=== PATIENT | female | born 1990 | race Caucasian/White ===

== ENCOUNTER 2017-04-30 16:05 | Emergency (ER) | payer OTHER, SELFPAY ==
[2017-04-30 17:45] VITALS: BP 132/90; PULSE 119; RESP 20; TEMP 36.9; O2SAT 92; BMI 40.7
[2017-04-30 17:58] LABS: UTC Influenza A Antigen Negative (Negative); UTC Influenza B Antigen Negative (Negative)
--- NOTE | 2017-04-30 17:58 | HMH.EDUTC ---
[facility] [place] Disposition Clinical Impression: Viral upper respiratory tract infection Disposition: Home, Self-Care Condition on Discharge: Good Instructions: DI for Viral Upper Respiratory Infection -- Adult Additional Instructions: * Monitor Temp. Tylenol and/or Ibuprofen as needed. ER if fever is no less than 101 despite alternating Tylenol and Ibuprofen * Encourage fluids, water, Gatorade, powerade, pedialyte if infant/toddler/or child * Warm salt water gargles for throat irritation *Warm fluids *Sore throat lozenges *Sleep elevated *humidifier or vaporizer Lots of rest Increase fluids, water, Gatorade, powerade *Bromfed may cause drowsiness. Know how it effect you or your child. Before driving, caring for small children or sending your child to school *Your throat swab was sent to lab for culture. Those results area typically sent to your primary care physician. Be sure to follow up in 2-3 days if no improvement so they can review those results and treat if necessary If you dont have primary care I recommend you get one, but in the mean time you will have to return to a walk in clinic Follow up IMMEDIATELY for new or worsening of symptoms OR no noticeable improvement over the next 48-72 hours. 911 immediately for any life threatening symptoms such as chest pain or difficulty breathing Prescriptions: Brompheniramine/Pseudoephed/Dm [Bromfed DM Cough Syrup 5mL] 10 ml PO Q4H PRN #200 syrup PRN Reason: Cough Referrals: Emmanuel Reagan MD [Primary Care Provider] - Forms: Work/School Release Time of Disposition: 18:02 Medical Decision Making Vital Signs: 04/30/17 17:45 Temperature 98.4 F Temperature Source Temporal Artery Scan Pulse Rate [Right Brachial] 119 H Respiratory Rate 20 Blood Pressure [Right Arm] 132/90 Blood Pressure Mean [Right Arm] 104 Blood Pressure Position [Right Arm] Sitting 02 Sat by Pulse Oximetry 92 L Oxygen Delivery Method Room Air - Chuy Inquiry Pt receiving controlled substance: No Chuy was queried for this patient: No [facility] [place] HPI - General Stated complaint: POSSIBLE FLU Mode of Arrival: Family Vehicle Source of Information: Patient Limitations: No Limitations Description of Symptoms (Recalled from Triage Doc. by RN): FLU LIKE SYMPTOMS HEENT Symptoms (Recalled from RN notes): Yes (FLU LIKE) Resp Symptoms (Recalled from RN notes): Yes (FLU LIKE) Skin Symptoms (Recalled from RN notes): No MS Symptoms (Recalled from RN notes): No Functional Status (Recalled from RN notes): NA - History of Present Illness Provider Complaint: Patient state that her nephew has the flu and she began to run a fever last night and not feeling well States that she is having body aches, chills and sore throat State that she wanted to come in and get checked for flu - Related Data Previous Rx's Medication Instructions Recorded Brompheniramine/Pseudoephed/Dm 10 ml PO Q4H PRN #200 syrup 04/30/17 [Bromfed DM Cough Syrup 5mL] Allergies Allergy/AdvReac Type Severity Reaction Status Date / Time No Known Allergies Allergy Unverified 04/03/17 14:53 - Worker's Comp Is this a Worker's Comp case?: No [facility] History I have reviewed the patient's past medical history: Yes Laterality Cases: Bilateral: Tonsillectomy - *Social History Smoking Status: Current every day smoker Tobacco Type: cigarettes Alcohol Intake: never - Psychiatric History Expresses thoughts of harming self/others: None Suicide Plan Description: No Plan ROS Obtained: Yes All systems reviewed & no additional complaints - Constitutional Constitutional: Reports chills, Reports fever(s) - ENT Ears, Nose, Mouth, and Throat: Reports sore throat Physical Exam - General General appearance: alert, in no apparent distress - ENT ENT exam: Present: normal exam, normal oropharynx, mucous membranes moist, TM's normal bilaterally, normal external ear exam - Respiratory Respiratory exam: Present: normal lung sounds bilateral
--- NOTE | 2017-04-30 18:01 | ED_ITS ---
[facility] [place] Clinical Impression: Viral upper respiratory tract infection Disposition: Home, Self-Care Condition on Discharge: Good Instructions: DI for Viral Upper Respiratory Infection -- Adult Additional Instructions: * Monitor Temp. Tylenol and/or Ibuprofen as needed. ER if fever is no less than 101 despite alternating Tylenol and Ibuprofen * Encourage fluids, water, Gatorade, powerade, pedialyte if infant/toddler/or child * Warm salt water gargles for throat irritation *Warm fluids *Sore throat lozenges *Sleep elevated *humidifier or vaporizer Lots of rest Increase fluids, water, Gatorade, powerade *Bromfed may cause drowsiness. Know how it effect you or your child. Before driving, caring for small children or sending your child to school *Your throat swab was sent to lab for culture. Those results area typically sent to your primary care physician. Be sure to follow up in 2-3 days if no improvement so they can review those results and treat if necessary If you don? t have primary care I recommend you get one, but in the mean time you will have to return to a walk in clinic Follow up IMMEDIATELY for new or worsening of symptoms OR no noticeable improvement over the next 48-72 hours. 911 immediately for any life threatening symptoms such as chest pain or difficulty breathing Prescriptions: Brompheniramine/Pseudoephed/Dm [Bromfed DM Cough Syrup 5mL] 10 ml PO Q4H PRN # 200 syrup PRN Reason: Cough Referrals: Emmanuel Reagan MD [Primary Care Provider] - Forms: Work/School Release Time of Disposition: 18:02 Medical Decision Making Vital Signs: 04/30/17 17:45 Temperature 98.4 F Temperature Source Temporal Artery Scan Pulse Rate [Right Brachial] 119 H Respiratory Rate 20 Blood Pressure [Right Arm] 132/90 Blood Pressure Mean [Right Arm] 104 Blood Pressure Position [Right Arm] Sitting 02 Sat by Pulse Oximetry 92 L Oxygen Delivery Method Room Air - Chuy Inquiry Pt receiving controlled substance: No Chuy was queried for this patient: No [facility] [place] - General Stated complaint: POSSIBLE FLU Mode of Arrival: Family Vehicle Source of Information: Patient Limitations: No Limitations Description of Symptoms (Recalled from Triage Doc. by RN): FLU LIKE SYMPTOMS HEENT Symptoms (Recalled from RN notes): Yes (FLU LIKE) Resp Symptoms (Recalled from RN notes): Yes (FLU LIKE) Skin Symptoms (Recalled from RN notes): No MS Symptoms (Recalled from RN notes): No Functional Status (Recalled from RN notes): NA - History of Present Illness Provider Complaint: Patient state that her nephew has the flu and she began to run a fever last night and not feeling well States that she is having body aches , chills and sore throat State that she wanted to come in and get checked for flu - Related Data Previous Rx's Medication Instructions Recorded Brompheniramine/Pseudoephed/Dm 10 ml PO Q4H PRN #200 syrup 04/30/17 [Bromfed DM Cough Syrup 5mL] Allergies Allergy/AdvReac Type Severity Reaction Status Date / Time No Known Allergies Allergy Unverified 04/03/17 14:53 - Worker's Comp Is this a Worker's Comp case?: No [facility] History I have reviewed the patient's past medical history: Yes Laterality Cases: Bilateral: Tonsillectomy - *Social History Smoking Status: Current every day smoker Tobacco Type: cigarettes Alcohol Intake: never - Psychi
== END 2017-04-30 18:07 | disposition home or self-care (01) ==
PROVIDERS: Emergency Provider Nurse Practitioner; Family Provider Nurse Practitioner Family; PCP Emergency Medicine
DX: J06.9 Acute upper respiratory infection, unspecified (principal); F17.210 Nicotine dependence, cigarettes, uncomplicated
CPT/HCPCS: 87804; 99201

== ENCOUNTER → 2018-01-25 15:07 | Outpatient (CLI) | payer OTHER, SELFPAY ==
--- NOTE | 2018-01-25 15:10 | US_ITS ---
US breast LT complete INDICATION: Left breast lump ORDERING PHYSICIAN: Caitlyn Brownlee PATIENT AGE: 27 years COMPARISON: None TECHNIQUE: Standard FINDINGS: 7 mm hypoechoic nodule at 8:00 with some internal septations. Mild ductal ectasia in the retroareolar region. 9 mm hypoechoic nodule at 12:00 outer with internal septations and a 5 mm hypoechoic nodule at 12:00 outer with internal septations IMPRESSION: Multiple hypoechoic nodules present suggesting complex cysts. No suspicious nodules apparent BI-RADS Category: 3 Probably Benign Finding Short Term Follow-up RECOMMENDED FOLLOW-UP: 6M - 6 MONTH FOLLOW-UP (A letter has been sent to the patient regarding results of the study.)
== END ==
PROVIDERS: Family Provider Nurse Practitioner Family; PCP Internal Medicine Adolescent Medicine; Visit Provider Nurse Practitioner Family
DX: N60.02 Solitary cyst of left breast (principal)
CPT/HCPCS: 76641

== ENCOUNTER → 2018-07-18 09:30 | Outpatient (CLI) | payer OTHER, SELFPAY ==
--- NOTE | 2018-07-18 09:38 | US_ITS ---
US breast LT complete Ordering Physician: Rosa Loja [facility] Patient Age: 27 years: Female HISTORY: ITS.REASON: lt breast cyst TECHNIQUE: Ultrasound survey entire left breast along with axillary survey COMPARISON :01/25/2018 ultrasound left breast FINDINGS No significant new findings 2:00. There is a 1.1 cm x 0.65 cm small cluster of cysts compatible with apocrine cysts This was seen before but is slightly more evident is slightly larger but it has benign appearance and can be followed. Good through transmission. 6:00. Tiny 6.5 mm area of similar character. Likely tiny clusterapocrine cystS No suspicious solid nodules or masses. No architectural distortion appreciable. Axillary survey unremarkable. IMPRESSION: No new areas of concern. There is a benign appearing cluster apocrine cysts at 2 o'clock position right breast which is slightly larger but has benign appearance. Mildly complex cyst. A tiny similar cluster cysts at 6:00.. These appear to be benign features and can be followed.. BI-RADS 2 benign appearing features RECOMMENDATION follow-up in one year Routine follow-up for age I believe these are benign features but ultrasound follow-up in one year suggested
== END ==
PROVIDERS: Visit Provider Nurse Practitioner Obstetrics & Gynecology
DX: N60.09 Solitary cyst of unspecified breast (principal); N63.20 Unspecified lump in the left breast, unspecified quadrant; N64.4 Mastodynia
CPT/HCPCS: 76641

== ENCOUNTER → 2018-10-04 08:00 | Outpatient (CLI) | payer OTHER, SELFPAY ==
--- NOTE | 2018-10-04 08:02 | US_ITS ---
US soft tissue head and neck Ordering Physician: Sony Cho MD Patient Age: 28 years: Female HISTORY: ITS.REASON: cyst of left neck behind ear TECHNIQUE: Ultrasound neck- attention palpable mass left posterior neck COMPARISON :None FINDINGS There is a 10 mm transverse x 9 mm AP round semisolid well marginated nodular density. Most likely debris-filled cyst.-. As It demonstrates through transmission back wall enhancement supporting the debris-filled cyst character. It encountered just beneath the skin surface and extends through the skin layer and extends down into the underlying SQ subcutaneous tissue. There are a few specular echoes within it. Most likely of dermal origin ... & Appearance most compatible with a sebaceous cyst.-with this location and its overall appearance . . This area could be easily aspirated clinically or by ultrasound guidance if desire further definitive confirmation and diagnosis.... Or this area shows progressive enlargement clinically. IMPRESSION: . 1. Well marginated debris-filled cyst just beginning just beneath the skin surface and extending deep to this.... Most likely of dermal origin. . most likely a Sebaceous Cyst or similar entity. Note comments in body of report
== END ==
PROVIDERS: Visit Provider Surgery
DX: L72.9 Follicular cyst of the skin and subcutaneous tissue, unspecified (principal)
CPT/HCPCS: 76536

== ENCOUNTER 2019-08-24 13:43 | Emergency (ER) | payer OTHER, SELFPAY ==
[2019-08-24 13:53] VITALS: BP 128/73; PULSE 94; RESP 19; TEMP 36.8; O2SAT 99; BMI 34.7
--- NOTE | 2019-08-24 14:04 | HMH.EDUTC ---
[facility] [place] Disposition Clinical Impression: Chest wall abscess Disposition: Home, Self-Care Condition on Discharge: Good Instructions: Boil Additional Instructions: Keep the affected area clean and dry. Follow up with the surgeon that I put in a referral to (Dr. Cho). Take the antibiotics as directed and apply the topical antibiotics as directed. Apply warm wet compresses to the affected area three or four times per day. GO TO THE ER FOR ANY WORSENING SYMPTOMS Prescriptions: Sulfamethoxazole/Trimethoprim [Bactrim DS tablet] 1 each PO BID 10 Days #20 tab Transmission Status: Received by [facility] # Mupirocin [Bactroban 2% Ointment 22gm tube] 1 applicatio TP TID 7 Days #1 tube Transmission Status: Received by [facility] # cephALEXin [Keflex 500mg Cap] 500 mg PO Q6H 10 Days #40 cap Transmission Status: Received by [facility] # Referrals: Provider,MD Christelle [Primary Care Provider] - Sony Cho MD [Staff Physician] - Time of Disposition: 14:10 Medical Decision Making - Medical Records Medical records reviewed: No: I reviewed the patient's medical records. - Chuy Inquiry Pt receiving controlled substance: No Vital Signs: 08/24/19 13:53 08/24/19 14:17 Temperature 98.3 F 98.3 F Temperature Source Oral Pulse Rate 94 H Pulse Rate [Left Brachial] 94 H Respiratory Rate 19 19 Blood Pressure 128/73 Blood Pressure [Left Arm] 128/73 Blood Pressure Mean [Left Arm] 91 Blood Pressure Source [Left Arm] Automatic Cuff Blood Pressure Position [Left Arm] Sitting 02 Sat by Pulse Oximetry 99 Oxygen Delivery Method Room Air Medical Decision Narrative: this cyst does not appear to be associated with her breast, but i referred to general surgery for further evaluation to be safe. [facility] [place] HPI - General Stated complaint: boil under L breast Time Seen by Provider: 08/24/19 14:04 Mode of Arrival: Ambulatory Source of Information: Patient Limitations: No Limitations Description of Symptoms (Recalled from Triage Doc. by RN): PATIENT C/O BOIL UNDER LEFT BREAST ON AND OFF FOR THE PAST 2 YEARS. SHE SAID IT HAS BECOME PAINFUL AND IS IRRITATED BY HER BRA. DENIES FEVER AND ANY OTHER SYMPTOMS HEENT Symptoms (Recalled from RN notes): No Resp Symptoms (Recalled from RN notes): No Skin Symptoms (Recalled from RN notes): Yes MS Symptoms (Recalled from RN notes): No Functional Status (Recalled from RN notes): WNL - History of Present Illness Provider Complaint: She states that she has a recurrent cyst below her left breast on her chest. Over the past 2 years it has periodically got painful and swollen until it busts. Then is will almost go away until it gets inflamed again. She states that over the past 3 days the site has been draining a little clear drainage and has redness around it. - Related Data Previous Rx's Medication Instructions Recorded Mupirocin [Bactroban 2% Ointment 1 applicatio TP TID 7 Days #1 tube 08/24/19 22gm tube] Sulfamethoxazole/Trimethoprim 1 each PO BID 10 Days #20 tab 08/24/19 [Bactrim DS tablet] cephALEXin [Keflex 500mg Cap] 500 mg PO Q6H 10 Days #40 cap 08/24/19 Allergies Allergy/AdvReac Type Severity Reaction Status Date / Time No Known Allergies Allergy Verified 06/12/19 16:59 - Worker's Comp Is this a Worker's Comp case?: No [facility] History - Hepatitis A Screen Drug use history?: No High risk sexual behaviors?: No History of sexually transmitted infection?: No Currently employed?: No Childcare worker?: No Do you have indoor plumbing?: Yes Do you have electricity?: Yes Attestation statement:: This patient has been screened for Hepatitis A risk factors. I have reviewed the patient's past medical history: Yes Medical History: Reports:: MRSA Denies:: Cancer, Diabetes Mellitus Type 1, Diabetes Mellitus Type 2, Seizures Other Medical History: Denies: Blood Transfusion Reaction Lateralit
[2019-08-24 14:17] VITALS: BP 128/73; PULSE 94; RESP 19; TEMP 36.8; O2SAT 99
== END 2019-08-24 14:18 | disposition home or self-care (01) ==
LOC: ER 13:46 → UTC 13:47
PROVIDERS: Emergency Provider Nurse Practitioner Family
DX: L02.213 Cutaneous abscess of chest wall (principal); F17.210 Nicotine dependence, cigarettes, uncomplicated; Z90.09 Acquired absence of other part of head and neck
CPT/HCPCS: 99201

== ENCOUNTER → 2019-09-23 08:05 | Outpatient (CLI) | payer OTHER, SELFPAY ==
[2019-09-23 08:30] LABS: Urine Pregnancy, HCG Qual. Negative (Negative)
[2019-09-23 10:13] LABS: Coronavirus 19 IgG Antibody Negative (Negative); Coronavirus 19 IgM Antibody Negative (Negative)
== END ==
PROVIDERS: Visit Provider Surgery
DX: Z32.02 Encounter for pregnancy test, result negative (principal); Z01.84 Encounter for antibody response examination; L02.213 Cutaneous abscess of chest wall
CPT/HCPCS: 36415; 81025; 86328

== ENCOUNTER 2019-09-24 06:23 | Day surgery (SDC) | payer OTHER, SELFPAY ==
[2019-09-23 11:36] VITALS: BMI 34.9
[2019-09-24 06:33] VITALS: BP 126/71; PULSE 83; RESP 18; TEMP 36.7; O2SAT 98
--- NOTE | 2019-09-24 07:03 | HMH.ANESCL ---
[facility] Anesthesia Checklist - Patient Identification Patient Identification: Arm Band, Verbal (Name & ) - Structural Data Admitted From: Home Planned Operative Procedure/s: exc. chest lesion Consent for Planned Operative Procedure(s) Verified: Yes Verified Documents: History and Physical - NPO Status Verified Time NPO: 00:00 - Chart Verification Results Verified: CBC, BMP - Additional verifications Patient : No Anesthesia Reactions: No Hx Blood Transfusions: No Blood Transfusion Reaction: No Cephalosporin Allergy: No Previous Colonoscopy: No - Cardiovascular Assessment Heart Sounds: S1 & S2 Pulse Strength: Baseline Pulse Rhythm: Regular Peripheral Edema: No - Airway Assessment C-Spine Mobility Assessed: Yes TMJ Mobility Assessed: Yes Dentition: Good Dentition - Neurological Assessment Level of Consciousness: Awake, Alert, Appropriate Hx Seizures: No Numbness or tingling in extremities: No - Anesthesia Plan Anesthesia Risk discussed: Yes Anesthesia Plan: Verified ASA Class: II Anesthesia Type: General [facility] History I have reviewed the patient's past medical history: Yes Medical History: Denies:: Cancer, Diabetes Mellitus Type 1, Diabetes Mellitus Type 2, Internal Pacemaker, MRSA, Seizures *Have you ever received a pneumonia vaccine?: No *Have you received a flu vaccine this season?: No Other Medical History: Denies: Blood Transfusion Reaction Anesthesia experience/problems:: none Laterality Cases: Bilateral: Tonsillectomy Other Surgeries: Yes: No Previous Surgery, Colonoscopy. No: Pacemaker Amputation: No Fractures: No - *Social History Educational Level: Completed College Smoking Status: Current every day smoker Tobacco Type: cigarettes # Packs/Day (cigarettes): 1 Alcohol Intake: never Substance Use Type: marijuana *Occupational Status:: employed Housing: house Household Members: significant other, children *Travel in the last 8 weeks: None Family Hx:: No significant family history
[2019-09-24 07:45] VITALS: BP 128/81; PULSE 82; RESP 18; TEMP 36.2; O2SAT 97
--- NOTE | 2019-09-24 07:45 | HMH.OPNOTE ---
Date of procedure: 09/24/19 Pre-op Diagnosis:: Chronic skin lesion left chest Post-op Diagnosis:: Same Procedure performed:: Excision of chronic skin lesion from left chest (excisional length 5.0 cm) with intermediate complexity closure Surgeon:: Sony Cho MD DERMATOLOGIST:: Doyle Person Anesthesia: MAC Estimated blood loss (mL): 5 Clinical Note:: Patient was recently seen and the office for follow-up of her boil on the left inframammary chest region. She is a 29-year-old female originally referred by the [facility] for a boil on her left chest area inferior to the breast. She states that she has had an area present for about 1 year that occasionally becomes inflamed and markedly tender. She was seen in the urgent treatment center several weeks ago. She was started on Bactrim and cephalexin. Patient states that since nothing was done in the urgent treatment center she attempted incision and drainage of the area herself with a needle. She was referred for surgical consultation. When I initially saw her a couple weeks ago she had an area of very focal cellulitis and inflammation. I advised her to continue the antibiotics and use warm compresses as if the area would become less inflamed it could be excised with primary closure. States that the inflammation has resolved. The inflammation and infection have resolved. Plan was made for excision of the affected area for prevention of future infections. Operative findings:: Underlying tissues unremarkable Operative note:: Patient was taken to the operating room. She was given preoperative antibiotics. She was positioned in a supine position. Adequate intravenous sedation was achieved. The area was prepped and draped in the standard surgical fashion. Skin was marked with a skin marker for planned elliptical incision with grossly negative margins. Local anesthetic was infiltrated. Full-thickness skin incision was performed and electrocautery was used to excise the affected skin ellipse from the underlying normal-appearing subcutaneous tissues. This was sent off as a specimen. Hemostasis was achieved with electrocautery. Deep dermal tissues were closed with interrupted 3-0 Vicryl. Skin was closed with interrupted 4-0 nylon. Dressing was applied. Condition: stable Disposition: other Complications:: None immediately apparent
[2019-09-24 08:00] VITALS: BP 128/87; PULSE 88; RESP 18; O2SAT 98
[2019-09-24 08:15] VITALS: BP 134/66; PULSE 81; RESP 18; O2SAT 98
== END 2019-09-24 08:15 | disposition home or self-care (01) ==
LOC: OR 06:24
PROVIDERS: PCP Internal Medicine Adolescent Medicine; Visit Provider Surgery
PROC: (CPT 11406; principal; 2019-09-24 07:30)
DX: D23.5 Other benign neoplasm of skin of trunk (principal); L08.89 Other specified local infections of the skin and subcutaneous tissue; Z90.89 Acquired absence of other organs; Z72.0 Tobacco use; F12.90 Cannabis use, unspecified, uncomplicated
CPT/HCPCS: 11406; 12031; 96374

== ENCOUNTER → 2020-06-17 08:02 | Outpatient (CLI) | payer OTHER, SELFPAY | PROVIDERS: Visit Provider Nurse Practitioner Family | DX: Z20.822 Contact with and (suspected) exposure to COVID-19 (principal) | CPT/HCPCS: U0003 ==

== ENCOUNTER 2020-12-12 12:59 | Emergency (ER) | payer OTHER, SELFPAY ==
[2020-12-12 15:37] VITALS: BP 119/78; PULSE 103; RESP 18; TEMP 36.6; O2SAT 100; BMI 33.1
--- NOTE | 2020-12-12 15:57 | HMH.EDUTC ---
[facility] [place] Clinical Impression: URI (upper respiratory infection), Wheezing, Smoker Disposition: Home, Self-Care Condition on Discharge: Good Instructions: Preventing the Spread of Coronavirus Discharge Instructions Additional Instructions: You have been tested for COVID19. Please isolate yourself as if you are positive until test results received. Prescriptions: Albuterol Sulfate [Albuterol Sulfate Hfa] 2 puffs IH Q4HP PRN 30 Days #1 each PRN Reason: Wheezing [id number] predniSONE [Prednisone 20mg Tab] 20 mg PO BID 5 Days #10 tab Transmission Status: Pending to [id number] Referrals: Provider,Referral, [Primary Care Provider] - Time of Disposition: 16:01 Medical Decision Making - Chuy Inquiry Pt receiving controlled substance: No Vital Signs: 12/12/20 15:37 Temperature 97.8 F Temperature Source Oral Pulse Rate [Left] 103 H Respiratory Rate 18 Blood Pressure [Right Arm] 119/78 Blood Pressure Mean [Right Arm] 91 02 Sat by Pulse Oximetry 100 Orders (Tests/Meds): ORDERS Category Date Time Status Covid-19 Nasal PCR ([facility]) Routine Lab 12/12/20 15:38 Received [facility] [place]PI - General Stated complaint: sore throat, weakness, cough, v/d Time Seen by Provider: 12/12/20 15:57 Mode of Arrival: Ambulatory Source of Information: Patient Limitations: No Limitations Description of Symptoms (Recalled from Triage Doc. by RN): pt c/o cough, congesion, fever and loss of taste HEENT Symptoms (Recalled from RN notes): Yes (congestion) Resp Symptoms (Recalled from RN notes): Yes (cough) Skin Symptoms (Recalled from RN notes): No MS Symptoms (Recalled from RN notes): No Functional Status (Recalled from RN notes): fever - History of Present Illness Provider Complaint: Cough, congestion, loss of taste X 2 days. is symptomatic and has been exposed at work (getting tested for COVID19 also). No fever. Nausea but no vomiting or diarrhea. No rash. Onset (ago): day(s) (2) Relieving factors: none Exacerbating factors: none Associated symptoms: cough, nausea/vomiting Treatments prior to arrival: none - Related Data Previous Rx's Medication Instructions Recorded Albuterol Sulfate [Albuterol 2 puffs IH Q4HP PRN 30 Days #1 each 12/12/20 Sulfate Hfa] predniSONE [Prednisone 20mg 20 mg PO BID 5 Days #10 tab 12/12/20 Tab] Allergies Allergy/AdvReac Type Severity Reaction Status Date / Time No Known Allergies Allergy Verified 06/16/20 16:39 - Worker's Comp Is this a Worker's Comp case?: No [facility] History - Hepatitis A Screen Drug use history?: No High risk sexual behaviors?: No History of sexually transmitted infection?: No Currently employed?: No Childcare worker?: No Do you have indoor plumbing?: Yes Do you have electricity?: Yes Attestation statement:: This patient has been screened for Hepatitis A risk factors. I have reviewed the patient's past medical history: Yes Medical History: Denies:: Cancer, Diabetes Mellitus Type 1, Diabetes Mellitus Type 2, Internal Pacemaker, MRSA, Seizures Other Medical History: Denies: Blood Transfusion Reaction Laterality Cases: Bilateral: Tonsillectomy Other Surgeries: Yes: No Previous Surgery, Colonoscopy, Other. No: Pacemaker Amputation: No Fractures: No Comment: excision on neck cyst - Social History Smoking Status: Current every day smoker Tobacco Type: cigarettes # Packs/Day (cigarettes): 1 Alcohol Intake: never Substance Use Type: marijuana Occupational Status: employed Housing: house Household Members: significant other, children Family Hx:: No significant family history ROS Obtained: Yes All systems reviewed & no additional complaints - Constitutional Constitutional: Reports body ache, Reports chills, Reports fever(s) - ENT Ears, Nose, Mouth, and Throat: Reports otalgia - Respiratory Respiratory: Reports cough Physical Exam - General General a
[2020-12-12 16:09] VITALS: BP 119/78; PULSE 103; RESP 16; TEMP 36.6
[2020-12-12 22:12] LABS: UTC Pregnancy Test, Urine Negative (Negative)
== END 2020-12-12 16:25 | disposition home or self-care (01) ==
PROVIDERS: Emergency Provider Physician Assistant
DX: J06.9 Acute upper respiratory infection, unspecified (principal); Z20.822 Contact with and (suspected) exposure to COVID-19; F17.210 Nicotine dependence, cigarettes, uncomplicated
CPT/HCPCS: 81025; 99203; G0463; U0003

== ENCOUNTER 2021-05-16 18:32 | Emergency (ER) | payer OTHER, SELFPAY ==
[2021-05-16 19:35] VITALS: BP 122/76; PULSE 118; RESP 19; TEMP 37.1; O2SAT 99; BMI 31.6
--- NOTE | 2021-05-16 20:10 | HMH.EDUTC ---
[facility] [place] Clinical Impression: Viral syndrome Disposition: Home, Self-Care Condition on Discharge: Good Instructions: DI for Viral Syndrome, DI for COVID-19 (Suspected or Confirmed ), Preventing the Spread of Coronavirus Discharge Instructions Additional Instructions: *Monitor Temp, Over the counter Motrin or Tylenol as directed/as needed Tylenol every 4 hours and Motrin every 6 hours (as long as your family doctor has told you that you can take it) for fever or pain. and straight to ER if unable to lower temp less than 101.0 after medication given *Warm salt water gargles may help to soothe the throat *Throat Lozenges *Warm fluids like tea with honey may help to soothe the throat *Sleep elevated *Humidifier/Vaporizer Your throat swab was sent for culture. Those results are typically sent to your primary care. Be sure to follow up in 2-3 days with your family doctor/primary care physician if no improvement so they can review those result and treat if necessary. If you don?t have a primary care doctor, I recommend you get one but in the mean time, you will have to return to a walk in clinic Follow up IMMEDIATELY for new or worsening symptoms or no Noticeable improvement over the next 48-72 hours. 911 for difficulty breathing or swallowing You were tested for today for COVID19 your test result should be back in the next 24-72 hours, you may check your results on the [facility] If you have trouble logging on you may call support If you are positive someone from the Hospital will be calling you Make sure to take your Vitamins Vit. C Vit D and Zinc if you can take them Referrals: Provider,Referral, [Primary Care Provider] - As needed Forms: Work/School Release Time of Disposition: 20:32 Medical Decision Making - Chuy Inquiry Pt receiving controlled substance: No Chuy was queried for this patient: No Vital Signs: 05/16/21 19:35 Temperature 98.8 F Temperature Source Oral Pulse Rate [Right Brachial] 118 H Respiratory Rate 19 Blood Pressure [Right Arm] 122/76 Blood Pressure Mean [Right Arm] 91 Blood Pressure Source [Right Arm] Automatic Cuff Blood Pressure Position [Right Arm] Sitting 02 Sat by Pulse Oximetry 99 Oxygen Delivery Method Room Air - Lab Data Lab results reviewed: Yes: I reviewed the patient's lab results. Lab Results 05/16/21 19:40: Group A Strep Rapid Negative Orders (Tests/Meds): ORDERS Category Date Time Status Covid-19 Nasal PCR ([facility]) Routine Lab 05/16/21 19:40 Received Strep Screen Confirmation Stat Micro 05/16/21 19:40 Received [facility] UTC HPI - General Stated complaint: covid/strep test/treated for symptoms Time Seen by Provider: 05/16/21 20:10 Mode of Arrival: Ambulatory Source of Information: Patient Limitations: No Limitations Description of Symptoms (Recalled from Triage Doc. by RN): PATIENT C/O DIARRHEA, LEG CRAMPS, CHEST CONGESTION, AND SORE THROAT HEENT Symptoms (Recalled from RN notes): Yes Resp Symptoms (Recalled from RN notes): Yes Skin Symptoms (Recalled from RN notes): No MS Symptoms (Recalled from RN notes): No Functional Status (Recalled from RN notes): WNL - History of Present Illness Provider Complaint: Patient states that she was recently around someone that was positive for COVID and someone that had strep throat States that now she is having body aches, chills headache sore throat and nasal congestion States that she wanted to get checked for COVID and strep states that she is 5wks OB - Related Data Previous Rx's Medication Instructions Recorded Albuterol Sulfate [Albuterol 2 puffs IH Q4HP PRN 30 Days #1 each 12/12/20 Sulfate Hfa] predniSONE [Prednisone 20mg 20 mg PO BID 5 Days #10 tab 12/12/20 Tab] Allergies Allergy/AdvReac Type Severity Reaction Status Date / Time No Known Allergies Allergy Verified 06/16/20 16:39 - Worker's Comp Is this a Worker's Comp case?: No [facility] History - Hepatitis A Scre
[2021-05-16 20:17] LABS: Strep Scrn Group A (Rapid) Negative (Negative)
[2021-05-16 20:35] VITALS: BP 122/76; PULSE 118; RESP 19; TEMP 37.1; O2SAT 99
== END 2021-05-16 20:39 | disposition home or self-care (01) ==
PROVIDERS: Emergency Provider Nurse Practitioner
DX: U07.1 COVID-19 (principal); F17.210 Nicotine dependence, cigarettes, uncomplicated; J02.9 Acute pharyngitis, unspecified; F12.10 Cannabis abuse, uncomplicated
CPT/HCPCS: 87430; 99203; C9803; G0463; U0003; U0005

== ENCOUNTER 2023-10-27 11:21 | Emergency (ER) | payer SELFPAY ==
[2023-10-27 11:30] VITALS: BP 110/78; PULSE 129; RESP 21; TEMP 38.1; O2SAT 100; BMI 40.7
[2023-10-27 11:57] LABS: Apearance,Urine Cloudy (Clear); Bilirubin,Urine 2+ (Negative); Blood, Urine 2+ (Negative); Color,Urine Dark Yellow (Yellow); Glucose,Urine (UA) Negative (Negative); Ketones,Urine 80 (Negative); Protein,Urine 3+ (Negative); UTC Leukocyte Esterase,Urine 1+ (Negative); UTC Nitrate,Urine Negative (Negative); Urobilinogen,Urine 4 EU/dl (0.2)
[2023-10-27 11:58] LABS: UTC Pregnancy Test, Urine Negative (Negative)
--- NOTE | 2023-10-27 11:58 | EXP.UTC ---
Discharge Plan Disposition Patient Disposition: Home, Self-Care Condition: Good Prescriptions Prescriptions: New cephalexin 500 mg tablet 500 mg PO BID 7 Days Qty: 14 0RF Referrals Follow up/Referrals: Caitlin Wyatt MD [Primary Care Provider] - See instructions Activity Restrictions/Add. Instructions Additional Instructions/Restrictions: Increase fluids, water and not soda or tea. Can drink cranberry juice or cranberry extract. Wipe front to back Wear cotton underwear Empty bladder after intercourse Start antibiotics immediately and make sure you take the full course although you may start to see improvement over the next 48 hours. You can eat yogurt or take probiotics to decrease diarrhea or yeast infection caused by the antibiotic Be sure to follow-up anytime for new or worsening symptoms in 48 hours for wound urine culture results be sure to let you PCP no recent urine for culture so they can request records and ensure that you have appropriate antibiotic if you are not getting better or getting worse. If symptoms worsen or do not improve return or be seen in the ER. Follow-up with primary care this week. Clinical Impressions Clinical Impression: UTI (urinary tract infection) Instructions Patient Instructions: DI for Urinary Tract Infection (UTI) Discharge ED Provider: Yareli ([facility])[place] [facility] [place] General Stated complaint: back pain difficulty urinating chills fever nausea Mode of Arrival: Ambulatory Source of Information: Patient Limitations: No Limitations Time Seen by Provider: 10/27/23 12:02 Description of Symptoms (Recalled from Triage Doc. by RN): PATIENT C/O FEVER, CHILLS, LEG PAIN, HEADACHE/SINUS PRESSURE, AND DIFFICULTY URINATION THAT STARTED YESTERDAY HEENT Symptoms (Recalled from RN notes): No Resp Symptoms (Recalled from RN notes): No Skin Symptoms (Recalled from RN notes): No MS Symptoms (Recalled from RN notes): No Functional Status (Recalled from RN notes): WNL History of Present Illness Provider Complaint: 33 yr old female presents for c/o back pain, difficulty urinating, chills, fever,urgency and nausea Related Data Previous Rx's Medication Instructions Recorded cephalexin 500 mg tablet 500 mg PO BID 7 days #14 tabs 10/27/23 Allergies Allergy/AdvReac Type Severity Reaction Status Date / Time No Known Allergies Allergy Verified 06/16/20 16:39 Worker's Comp Is this a Worker's Comp case?: No [facility] Disclaimer: The information contained in this section may have been updated after the patient was seen, as this information can be updated by other users. Social History , [employer]) Smoking Status: Current every day smoker tobacco type: cigarettes packs per day: 1 second hand exposure: Yes alcohol intake: never substance use type: marijuana current occupational status: employed Travel in the last 8 weeks: None household members: significant other and children housing: house number of children: 0 current occupation: [employer] current occupational exposures/hazards: No caffeine: Yes ROS Obtained: Yes All systems reviewed & no additional complaints except as documented Constitutional Constitutional: Reports system reviewed and no additional complaints, except as documented Eyes Eyes: Reports system reviewed and no additional complaints, except as documented ENT Ears, Nose, Mouth, and Throat: Reports system reviewed and no additional complaints, except as documented Cardiovascular Cardiovascular: Reports system reviewed and no additional complaints, except as documented Respiratory Respiratory: Reports system reviewed and no additional complaints, except as documented Gastrointestinal Gastrointestingal: Reports system reviewed and no additional complaints, except as documented Genitourinary Female Genitourinary: Reports system reviewed and no additional complaints, except as documented, Reports as per HPI, Reports dysuria, Reports flank pain, Reports hematuria, Reports urinary hesitancy and Reports urinary urgency Musculoskeletal Musculoskeletal: Reports system reviewed and no additional complaints, except as documented Integumentary/Breasts Skin/Breast: Reports system reviewed and no additional complaints, except as documented Neurologic Neurologic: Reports system reviewed and no additional complaints, except as documented Endocrine Endocrine: Reports system reviewed and no additional complaints, except as documented Hematologic/Lymphatic Henatologic/Lymphatic: Reports system reviewed and no additional complaints, except as documented Allergic/Immunologic Allergic/Immunologic: Reports system reviewed and no additional complaints, except as documented Physical Exam General General appearance: alert and in no apparent distress Eye Eye exam: Present normal appearance ENT ENT exam: Present normal exam, normal oropharynx and TM's normal bilaterally Respiratory Respiratory exam: Present normal lung sounds bilaterally Cardiovascular Cardiovascular exam: Present regular rate and normal rhythm Abdominal Exam Abdominal exam: Present soft and normal bowel sounds Neurological Exam Neurological exam: Present alert and oriented X3 Skin Skin exam: Present warm and intact Medical Decision Making Medical Records Medical records reviewed: Yes I reviewed the patient's medical records. Chuy Inquiry Pt receiving controlled substance: No Chuy was queried for this patient: No Vital Signs: 10/27/23 11:30 Temperature 100.5 F H Temperature Source Oral Pulse Rate [Left Brachial] 129 H Respiratory Rate 21 Blood Pressure [Left Arm] 110/78 Blood Pressure Mean [Left Arm] 88 Blood Pressure Source [Left Arm] Automatic Cuff Blood Pressure Position [Left Arm] Sitting 02 Sat by Pulse Oximetry 100 Oxygen Delivery Method Room Air Lab Data Lab results reviewed: Yes I reviewed the patient's lab results. Lab Results 10/27/23 11:43: Urine Color Dark yellow, Urine Appearance Cloudy, Urine pH 6.0, Ur Specific Centre 1.020, Urine Protein 3+, Urine Glucose (UA) Negative, Urine Ketones 80, Urine Blood 2+, Urine Nitrate Negative, Urine Bilirubin 2+ A, Urine Urobilinogen 4, Ur Leukocyte Esterase 1+ A 10/27/23 11:51: Tst Clinic Negative Orders (Tests/Meds): ORDERS Category Date Time Status Urine Culture Stat Micro 10/27/23 11:50 Ordered
[2023-10-27 12:00] VITALS: BP 110/78; PULSE 129; RESP 21; TEMP 38.1; O2SAT 100
--- NOTE | 2023-10-29 08:54 | PC.NURSE ---
REVIEWED URINE CULTURE WITH Diana MAC APRN. NO CHANGE NEEDED
== END 2023-10-27 12:04 | disposition home or self-care (01) ==
PROVIDERS: Emergency Provider Nurse Practitioner Family; PCP Family Medicine
DX: N39.0 Urinary tract infection, site not specified (principal); B96.29 Other Escherichia coli [E. coli] as the cause of diseases classified elsewhere; M54.59 Other low back pain; R50.9 Fever, unspecified; R11.0 Nausea; R35.0 Frequency of micturition; R39.198 Other difficulties with micturition
CPT/HCPCS: 81003; 81025; 87086; 87088; 87186; 99212; 99214; G0463